=== PATIENT | female | born 1940 | race Caucasian/White ===

== ENCOUNTER 2018-03-01 16:55 | Emergency (ER) | payer MEDICARE, OTHER ==
[~2018-03-01] VITALS: Ht 157.5 cm; Wt 93.4 kg
[~2018-03-01 16:55] MED LIST: LISINOPRIL10 MG; TENORMIN25 MG
[2018-03-01 17:47] LABS: ABSOLUTE BASOPHILS 0.1 thou/uL (0.0-0.2); ABSOLUTE EOSINOPHILS 0.2 thou/uL (0.0-0.7); ABSOLUTE LYMPHOCYTES 2.5 thou/uL (0.8-5.3); ABSOLUTE MONOCYTES 0.8 thou/uL (0.0-1.2); ABSOLUTE NEUTROPHILS 4.8 thou/uL (1.6-8.1); BASOPHILS 1.1 %; EOSINOPHILS 1.8 %; HEMATOCRIT 44.4 % (37.0-47.0); HEMOGLOBIN 15.2 gm/dL (12.0-15.0); MCHC 34.2 g/dL (28.0-37.0); MCV 90.5 fL (80.0-100.0); MONOCYTES 9.2 %; MPV 7.9 fl. (7.2-11.1); NUCLEATED RBCS 0 /100WBC; PLATELET COUNT* 174 thou/uL (150-400); POLYS 57.9 %; RBC 4.91 mil/uL (4.20-5.00); RDW-CV 14.2 % (10.5-14.5); WBC 8.4 thou/uL (4.0-11.0)
[2018-03-01 18:44] LABS: ANION GAP 8 mmol/L (7-16); BUN 22 mg/dL (7-18); CALCIUM 9.6 mg/dL (8.5-10.1); CHLORIDE 103 mmol/L (98-107); CO2 26 mmol/L (21-32); CREATININE 0.5 mg/dL (0.6-1.3); GLUCOSE 111 mg/dL (70-99); POTASSIUM 4.1 mmol/L (3.5-5.1); SODIUM 137 mmol/L (136-145)
[2018-03-01 18:50] LABS: ALBUMIN 4.2 g/dL (3.4-5.0); ALKALINE PHOSPHATASE 84 U/L (46-116); SGOT 28 U/L (15-37); SGPT 34 U/L (30-65); TOTAL BILIRUBIN 0.5 mg/dL (<0.1-1.0); TOTAL PROTEIN 7.8 g/dL (6.4-8.2); TROPONIN-I LEVEL <0.06 ng/mL (<0.06)
[2018-03-01] MEDS ORDERED: MEDROLDOSEPACK PO (19:26)
[2018-03-01] MEDS ORDERED: VALIUM5 MG PO (19:26)
[2018-03-01 19:46] VITALS: BP 151/53
--- NOTE | 2018-03-02 14:02 | EKG ---
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 : 1940 Requested By: Adrian Phan Order Number: [id number] MD: Jame Britt Measurements Intervals [place] Rate: 59 P: 31 ND: 155 QRS: -3 QRSD: 97 T: 6 QT: 416 QTc: 413 Interpretive Statements Sinus rhythm Left atrial enlargement, possible Left ventricular hypertrophy, bivoltage Compared to ECG 03/04/2016 22:50:19 T-wave abnormality no longer present Electronically Signed On 03-02-2018 14:02:25 CDT by Jame Britt [email or web address] <ELECTRONICALLY SIGNED> By: Jame Britt MD, [facility] 03/02/18 1402 1704 1704 Jame Britt MD, [facility] /EPI
== END 2018-03-01 19:46 | disposition home or self-care (01) ==
LOC: M.ERS 16:55
PROVIDERS: Nurse Practitioner Family
DX: R42 Dizziness and giddiness (principal); I10 Essential (primary) hypertension; Z90.710 Acquired absence of both cervix and uterus; Z90.49 Acquired absence of other specified parts of digestive tract; Z88.5 Allergy status to narcotic agent

== ENCOUNTER 2018-10-27 10:21 | Emergency (ER) | payer MEDICARE, OTHER ==
[~2018-10-27] VITALS: Ht 157.5 cm; Wt 95.7 kg
[~2018-10-27 10:21] MED LIST changes: +MEDROLDOSEPACK PO; +VALIUM5 MG PO
[2018-10-27 11:15] LABS: ABSOLUTE EOSINOPHILS 0.1 thou/uL (0.0-0.7); ABSOLUTE MONOCYTES 0.6 thou/uL (0.0-1.2); ABSOLUTE NEUTROPHILS 3.3 thou/uL (1.6-8.1); BASOPHILS 0.7 %; EOSINOPHILS 2.2 %; HEMATOCRIT 43.4 % (37.0-47.0); HEMOGLOBIN 15.3 gm/dL (12.0-15.0); LYMPHOCYTES 33.2 %; MCH 31.7 pg (26.0-34.0); MCHC 35.1 g/dL (28.0-37.0); MCV 90.4 fL (80.0-100.0); MONOCYTES 9.9 %; MPV 7.4 fl. (7.2-11.1); NUCLEATED RBCS 0 /100WBC; PLATELET COUNT* 189 thou/uL (150-400); RBC 4.81 mil/uL (4.20-5.00); RDW-CV 13.5 % (10.5-14.5)
[2018-10-27 11:16] LABS: ANION GAP 5 mmol/L (7-16); BUN 12 mg/dL (7-18); CALCIUM 9.4 mg/dL (8.5-10.1); CHLORIDE 103 mmol/L (98-107); CO2 30 mmol/L (21-32); CREATININE 0.6 mg/dL (0.6-1.3); GLUCOSE 98 mg/dL (70-99); POTASSIUM 4.4 mmol/L (3.5-5.1); SODIUM 138 mmol/L (136-145)
[2018-10-27 11:23] LABS: ALBUMIN 4.1 g/dL (3.4-5.0); ALKALINE PHOSPHATASE 103 U/L (46-116); SGOT 27 U/L (15-37); SGPT 33 U/L (30-65); TOTAL BILIRUBIN 0.6 mg/dL (<0.1-1.0); TOTAL PROTEIN 7.7 g/dL (6.4-8.2); TROPONIN-I LEVEL <0.06 ng/mL (<0.06)
[2018-10-27 11:41] LABS: URINE BILIRUBIN NEGATIVE (Negative); URINE BLOOD NEGATIVE (Negative); URINE CLARITY CLEAR; URINE COLOR YELLOW; URINE GLUCOSE-RANDOM NEGATIVE (Negative); URINE KETONES NEGATIVE (Negative); URINE LEUKOCYTES-REFLEX NEGATIVE (Negative); URINE NITRITE-REFLEX NEGATIVE (Negative); URINE PROTEIN NEGATIVE (Negative); URINE SPECIFIC GRAVITY <= 1.005 (1.005-1.030); URINE UROBILINOGEN 0.2 E.U./dl (0.2-1.0)
[2018-10-27] MEDS ORDERED: VALIUM5 MG PO (13:29)
[2018-10-27] MEDS ORDERED: HYDROCODON-ACE1 EAC7 PO (13:29)
[2018-10-27 13:35] VITALS: BP 171/69
--- NOTE | 2018-10-27 15:24 | EKG ---
[place] [address] ELECTROCARDIOGRAM REPORT Name: RICK ARCHULETA Room: 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1940 Requested By: Mirela David Order Number: [id number] MD: Domingo Ludwig Measurements Intervals [place] Rate: 52 P: 20 ME: 157 QRS: -2 QRSD: 100 T: 5 QT: 418 QTc: 389 Interpretive Statements Sinus rhythm Probable left atrial enlargement Left ventricular hypertrophy Minimal ST elevation, anterolateral leads Compared to ECG 03/01/2018 17:04:58 ST (T wave) deviation now present Electronically Signed On 10-27-2018 15:24:22 MANAGER LAB by Domingo Ludwig [email or web address] <ELECTRONICALLY SIGNED> By: Domingo Ludwig MD, [facility] 10/27/18 1524 1028 1028 Domingo Ludwig MD, [facility] /EPI
== END 2018-10-27 13:35 | disposition home or self-care (01) ==
LOC: M.ERS 10:21
PROVIDERS: Personal Emergency Response Attendant
DX: M62.838 Other muscle spasm (principal); I10 Essential (primary) hypertension; Z90.710 Acquired absence of both cervix and uterus; Z88.5 Allergy status to narcotic agent; Z90.49 Acquired absence of other specified parts of digestive tract

== ENCOUNTER 2019-03-31 15:39 | Observation (INO) | payer MEDICARE, OTHER ==
[~2019-03-31] VITALS: Ht 157.5 cm; Wt 93.1 kg
--- NOTE | ~2019-03-31 | CON ---
[address] [address] CONSULTATION Name: RICK ARCHULETA Room: [address] Fidelina Arana#: [id number] Admission: 03/31/19 Attend Phys: Flakito Salinas MD Discharge: 04/01/19 Date of : 44 Report #: [id number] THIS REPORT FOR: //name// CC: Flakito Landry Jim DATE OF SERVICE: 04/01/2019 NEUROLOGY CONSULTATION HISTORY OF PRESENT ILLNESS: The patient is a 78-year-old female who yesterday noticed numbness in her foot, which is not new and is from a sprained ankle according to the patient. She then noticed more intense numbness in her thigh, which she has also had before, but it was more intense than usual. Then when she noticed some numbness in her left arm, she became concerned and came to the Emergency Room. By the time she got to the Emergency Room, she was feeling better and today, she feels much better. The patient has a prior history of cervical spinal stenosis. She also has gained weight. PAST MEDICAL HISTORY: Hypertension. PAST SURGICAL HISTORY: Hysterectomy, appendectomy, cholecystectomy, and right carpal tunnel release. MEDICATIONS: Lisinopril 10 mg daily, atenolol 25 mg daily. ALLERGIES: CODEINE. PHYSICAL EXAMINATION: VITAL SIGNS: Temperature is 36.7, pulse rate 59, respiratory rate 16, blood pressure 157/68. On admission, her blood pressure was 190/86, bedside pulse oximetry 94% on room air. NEUROLOGIC: Cranial nerves 2-12 are grossly intact. Motor exam demonstrates symmetrical strength in all 4 extremities with tone and bulk normal. Reflexes are trace throughout. Plantar responses are flexor. Coordination reveals intact [id number]. Gait was not tested. LABORATORY DATA: Hematology: White blood cell count 8, hemoglobin 15.7, hematocrit 44.8. Chemistry: Sodium 143, potassium 3.9, chloride 108, carbon dioxide 27, BUN 13, creatinine 0.6, and glucose 106. Liver functions normal. Triglycerides 195, cholesterol 164, LDL cholesterol 96, HDL cholesterol 29. IMAGING: CT scan of the head shows no acute intracranial process. IMPRESSION: The patient had paresthesias in the left leg as it turns out these paresthesias are not new. In fact, the patient [place] [id number] CONSULTATION Name: RICK ARCHULETA Room: [address] Sumit#: [id number] Admission: 03/31/19 Attend Phys: Flakito Salinas MD Discharge: 04/01/19 Date of : 44 Report #: [id number] paresthesias in the left thigh, sometimes when she stands. This may be secondary to meralgia paresthetica, which is entrapment of the left lateral femoral nerve beneath the inguinal ligament. It comes on with weight gain. An MRI of the head will be ordered for the patient today. If there is no evidence of stroke, no further stroke workup is necessary and she can be discharged. As an outpatient, she would probably benefit from an EMG of the left upper and left lower extremity. However, meralgia paresthetica is not diagnosed typically by the EMG, but if there are no radicular symptoms, then meralgia paresthetica would be the diagnosis. I thank you for your kind referral of this patient. By: 1029 1921Roxane Sarah Swain DO /erum
[~2019-03-31 15:39] MED LIST changes: +HYDROCODON-ACE1 EAC7 PO; -LISINOPRIL10 MG; +LISINOPRIL10 MG PO; -TENORMIN25 MG; +TENORMIN25 MG PO
[2019-03-31 15:45] VITALS: BP 190/86
[2019-03-31 16:32] LABS: HEMATOCRIT 44.8 % (37.0-47.0); HEMOGLOBIN 15.7 gm/dL (12.0-15.0); MCH 30.7 pg (26.0-34.0); MCV 87.8 fL (80.0-100.0); MPV 7.6 fl. (7.2-11.1); NUCLEATED RBCS 0 /100WBC; PLATELET COUNT* 168 thou/uL (150-400); RBC 5.11 mil/uL (4.20-5.00); RDW-CV 13.6 % (10.5-14.5)
[2019-03-31 16:41] LABS: ANION GAP 11 mmol/L (7-16); BUN 12 mg/dL (7-18); CALCIUM 9.9 mg/dL (8.5-10.1); CHLORIDE 105 mmol/L (98-107); CO2 25 mmol/L (21-32); CREATININE 0.6 mg/dL (0.6-1.3); GLUCOSE 98 mg/dL (70-99); POTASSIUM 4.3 mmol/L (3.5-5.1); PROTIME 10.1 Seconds (9.20-11.50); SODIUM 141 mmol/L (136-145)
--- NOTE | 2019-03-31 16:42 | NUR ---
CT HEAD COMPLEATED PATIENT RETURNED TO ED
[2019-03-31 16:48] LABS: ABSOLUTE EOSINOPHILS 0.2 thou/uL (0.0-0.7); ABSOLUTE LYMPHOCYTES 3.6 thou/uL (0.8-5.3); ABSOLUTE MONOCYTES 0.6 thou/uL (0.0-1.2); ABSOLUTE NEUTROPHILS 3.6 thou/uL (1.6-8.1); PLATELET ESTIMATE ADEQUATE
[2019-03-31 16:49] LABS: ATYPICAL LYMPHS 28 %
[2019-03-31 16:50] LABS: ALBUMIN 4.3 g/dL (3.4-5.0); ALKALINE PHOSPHATASE 105 U/L (46-116); SGOT 35 U/L (15-37); SGPT 42 U/L (30-65); TOTAL BILIRUBIN 0.5 mg/dL (<0.1-1.0); TOTAL PROTEIN 8.6 g/dL (6.4-8.2); TROPONIN-I LEVEL <0.06 ng/mL (<0.06)
--- NOTE | 2019-03-31 17:27 | NUR ---
PT GIVEN DINNER TRAY.
[2019-03-31 18:49] VITALS: BP 136/54
--- NOTE | 2019-03-31 18:49 | NUR ---
RECEIVED REPORT FROM GALLO IN THE ED AND ASSUMED CARE OF PT @ 0030.PT IS A/O X4,VSS,TRACING SR ON THE MONITOR.IV PATENT AND SALINE LOCKED.PT IS CALM AND COOPERATIVE WITH NO C/O PAIN.NIH COMPLETED.PT LEFT RESTING IN BED WITH CALL LIGHT AND FALL PRECAUTIONS IN PLACE. HOURLY ROUNDING COMPELTED.WILL CONTINUE TO MONITOR FOR DURATION OF SHIFT.
[2019-03-31 18:52] VITALS: BP 153/69
[2019-03-31 20:12] VITALS: BP 154/62
[2019-04-01] VITALS: BP 114/53
[2019-04-01 04:00] VITALS: BP 142/61
[2019-04-01 05:14] LABS: ALBUMIN 3.4 g/dL (3.4-5.0); ALKALINE PHOSPHATASE 82 U/L (46-116); ANION GAP 8 mmol/L (7-16); BUN 13 mg/dL (7-18); CHLORIDE 108 mmol/L (98-107); CHOLESTEROL 164 mg/dL (<200); CO2 27 mmol/L (21-32); CREATININE 0.6 mg/dL (0.6-1.3); GLUCOSE 106 mg/dL (70-99); HDL CHOLESTEROL 29 mg/dL (>40); LDL CHOLESTEROL 96 mg/dL (<100); POTASSIUM 3.9 mmol/L (3.5-5.1); SGOT 22 U/L (15-37); SGPT 33 U/L (30-65); SODIUM 143 mmol/L (136-145); TC:HDL 5.7 Ratio (Not establshd); TOTAL BILIRUBIN 0.4 mg/dL (<0.1-1.0); TOTAL PROTEIN 6.4 g/dL (6.4-8.2); TRIGLYCERIDE 195 mg/dL (<150); VLDL 39 mg/dL (<40)
--- NOTE | 2019-04-01 05:38 | NUR ---
RECEIVED REPORT AND ASSUMED CARE AT 1900. VSS. CARDAIC MONITORING IN PLACE. PT DENIES COMPLAINTS OF PAIN. ASSESSMENT COMPLETED CHARTED. NIH=O. PT REPORTS FEELING OF NUMBNESS IS SUBSIDING. REPORTS MULTIPLE SPAINS TO L ANKLE, ALWAYS "KIND OF NUMB" BUT THAT IT THE NUMB FEELIG WAS GOING HIGHER UP HER LEG THIS TIME. PT UP SBA, ON RA. BED LOCKED IN LOWEST POSITION, CALL LIGHT WITHIN REACH, BED ALARM ON. HOURLY ROUNDING COMPLETED AND ALL NEEDS MET.
[2019-04-01 05:43] LABS: SERUM ASSESSMENT CLEAR
[2019-04-01 08:08] VITALS: BP 157/68
--- NOTE | 2019-04-01 08:21 | NUR ---
RECEIVED REPORT FROM ISABELL AND ASSUMED CARE OF PT @ 4522.PT IS A/O X4,VSS,TRACING SB ON THE MONITOR.IV PATENT WITH IVF INFUSING PER ORDERS.PT IS CALM AND COOPERATIVE WITH NO C/O PAIN.NIH COMPLETED.PT LEFT RESTING IN BED WITH CALL LIGHT AND FALL PRECAUTIONS IN PLACE.WILL CONTINUE TO MONITOR.
[2019-04-01 12:10] VITALS: BP 157/68
--- NOTE | 2019-04-01 13:00 | NUR ---
PT COMPLETED MRI OF HEAD.PT MADE OBSERVATION PT.PT OK FOR DISCHARGE.PAPERWORK COMPLETED AND GIVEN TO THE PT.NO SCRIPTS GIVEN.IV REMOVED. HEART MONITOR REMOVED AND RETURNED TO THE NURSING STATION.ALL PERSONAL BELONGINGS PACKED AND TAKEN WITH PT.PT WHEELED OUT BY NURSING STAFF TO PERSONAL VEHICLE.
--- NOTE | 2019-04-01 13:48 | NUR ---
PT ORDERS RECEIVED AND ACKNOWLEDGED, PT DISCHARGED FROM HOSPITAL PRIOR TO COMPLETION OF PT EVALUATION AND INTERVENTIONS.
[2019-04-02 03:09] LABS: GLYCOHEMOGLOBIN (HGB A1C) 5.8 % (4.8-5.6)
--- NOTE | 2019-04-02 12:24 | EKG ---
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1940 Requested By: Everett Ellis Order Number: [id number] MD: Epi Early Measurements Intervals [place] Rate: 62 P: 25 VA: 148 QRS: -5 QRSD: 91 T: 2 QT: 390 QTc: 396 Interpretive Statements Sinus rhythm Left atrial enlargement Abnormal R-wave progression, early transition Left ventricular hypertrophy Inferior infarct, old Compared to ECG 10/27/2018 10:28:26 Myocardial infarct finding now present ST (T wave) deviation no longer present Electronically Signed On 04-02-2019 12:24:06 CDT by Epi Early [email or web address] <ELECTRONICALLY SIGNED> By: Epi Early MD, FACC 04/02/19 1224 1612 1612 Epi Early MD, FAC /EPI
== END 2019-04-01 13:01 | disposition home or self-care (01) ==
LOC: M.ERS 15:39 → M.2W 17:20 → M.TBA-ER 17:20 → M.2W 18:31
PROVIDERS: Emergency Medicine Emergency Medical Services; ADMIT Internal Medicine
DX: R20.2 Paresthesia of skin (principal); I10 Essential (primary) hypertension; Z88.5 Allergy status to narcotic agent; Z90.710 Acquired absence of both cervix and uterus; Z90.89 Acquired absence of other organs; Z90.49 Acquired absence of other specified parts of digestive tract; Z98.890 Other specified postprocedural states; Z79.82 Long term (current) use of aspirin; Z79.899 Other long term (current) drug therapy; Z86.73 Personal history of transient ischemic attack (TIA), and cerebral infarction without residual deficits

== ENCOUNTER 2020-07-11 14:35 | Emergency (ER) | payer MEDICARE, OTHER ==
[~2020-07-11] VITALS: Ht 157.5 cm; Wt 97.5 kg
[2020-07-11 15:19] LABS: INFLUENZA A ANTIGEN Negative (Negative); INFLUENZA B ANTIGEN Negative (Negative)
[2020-07-11 15:48] VITALS: BP 175/70
== END 2020-07-11 15:49 | disposition home or self-care (01) ==
LOC: M.ERS 14:35
PROVIDERS: Physician Assistant
DX: R05 Cough (principal); Z20.828 Contact with and (suspected) exposure to other viral communicable diseases; R09.81 Nasal congestion; I10 Essential (primary) hypertension; Z79.899 Other long term (current) drug therapy; Z88.6 Allergy status to analgesic agent; Z90.49 Acquired absence of other specified parts of digestive tract; Z90.710 Acquired absence of both cervix and uterus

== ENCOUNTER 2020-07-13 13:51 | Emergency (ER) | payer MEDICARE, OTHER ==
[~2020-07-13] VITALS: Ht 157.5 cm; Wt 98.0 kg
[2020-07-13 14:02] VITALS: BP 201/85
--- NOTE | 2020-07-14 17:53 | EKG ---
[place] [address] ELECTROCARDIOGRAM REPORT Name: RICK ARCHULETA Room: 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: [facility] : 1940 Requested By: Everett Ellis Order Number: [id number] MD: Jame Britt Measurements Intervals [place] Rate: 63 P: 22 AR: 145 QRS: 57 QRSD: 91 T: 64 QT: 398 QTc: 408 Interpretive Statements Sinus rhythm Left atrial enlargement, possible Compared to ECG 03/31/2019 16:12:36 Left ventricular hypertrophy no longer present Myocardial infarct finding no longer present Electronically Signed On 07-14-2020 17:52:52 CDT by Jame Britt [email or web address] <ELECTRONICALLY SIGNED> By: Jame Britt MD, FACC 07/14/20 1752 1402 140 Jame Britt MD, FAC /EPI
== END 2020-07-13 14:25 | disposition home or self-care (01) ==
LOC: M.ERS 13:51
DX: U07.1 COVID-19 (principal); I10 Essential (primary) hypertension; Z90.49 Acquired absence of other specified parts of digestive tract; Z88.5 Allergy status to narcotic agent; Z90.710 Acquired absence of both cervix and uterus; Z87.01 Personal history of pneumonia (recurrent)

== ENCOUNTER → 2020-08-07 | Outpatient (CLI) | payer MEDICARE, OTHER | LOC: M.RAD 09:00 | PROVIDERS: ATTEND Family Medicine | DX: R92.1 Mammographic calcification found on diagnostic imaging of breast (principal) ==